=== PATIENT | female | born 2005 | race Two or more races ===

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

== ENCOUNTER 2023-11-06 18:11 | Emergency (ER) | payer MEDICAID, OTHER ==
[~2023-11-06] VITALS: Ht 162.6 cm; Wt 52.2 kg
[2023-11-06 19:10] VITALS: BP 126/88; PULSE 75; RESP 16; TEMP 98; O2SAT 98
[2023-11-06] MEDS ORDERED: ACET500T58 PO (19:35)
== END 2023-11-06 21:32 | disposition home or self-care (01) ==
LOC: ER 18:11
DX: S00.33XA Contusion of nose, initial encounter (principal); W18.31XA Fall on same level due to stepping on an object, initial encounter; Y93.89 Activity, other specified; Y92.89 Other specified places as the place of occurrence of the external cause; Y99.8 Other external cause status
CPT/HCPCS: 70160